=== PATIENT | male | born 1990 | race Caucasian/White ===

== ENCOUNTER 2020-05-13 19:33 | Emergency (ER) | payer BC ==
[~2020-05-13] VITALS: Ht 162.6 cm; Wt 72.6 kg
[2020-05-13 19:53] VITALS: BP 176/115; Ht 162.6 cm; Wt 72.6 kg
== END 2020-05-13 20:24 | disposition left against medical advice (07) ==
LOC: ED 19:33
DX: R07.89 Other chest pain (principal); R06.02 Shortness of breath; I10 Essential (primary) hypertension